=== PATIENT | male | born 1940 | race Caucasian/White ===

== ENCOUNTER 2018-02-20 06:37 | Outpatient (CLI) | payer OTHER ==
[~2018-02-20] VITALS: Ht 182.9 cm; Wt 91.2 kg
--- NOTE | ~2018-02-20 | D ---
[facility] [place] [address] DISCHARGE SUMMARY Name: NELDA STAUFFER [id number] Admission: 02/20/18 Attend Phys: Abdon Turk MD Discharge: 02/21/18 Date of : 44 Report #: [id number] THIS REPORT FOR: //name// CC: Abdon Mike DATE OF SERVICE: 02/21/2018 FINAL DIAGNOSES: 1. Coronary artery disease, status post percutaneous coronary angioplasty. 2. Diabetes mellitus. 3. Hypercholesterolemia. 4. Bradycardia. 5. Gastroesophageal reflux disease. HOSPITAL COURSE: Please see the original H and P for full details. He has significant CAD risk factors and presents with dyspnea on exertion. While undergoing a stress test, he had significant ST segment changes with exercise. He reported no chest pains, but some fatigue. The images revealed inferior wall ischemia. He presented for elective cardiac catheterization. Please see the catheterization report for full details. There was a severe occlusion involving the RCA, undergoing placement of drug-eluting stent. He has remained hemodynamically stable and will be discharged home. He is given strict instructions on the importance of dual antiplatelet therapy. FINAL DISPOSITION: Brilinta 90 mg twice a day, aspirin 81 mg daily, Crestor 40 mg daily, Zetia 10 mg daily, glipizide, Actos and metformin. He is given instructions for followup in the office. <ELECTRONICALLY SIGNED> By: Abdon Turk MD 02/23/18 0959 [id number] Abdon Turk MD /matti
--- NOTE | ~2018-02-20 | CATHLAB ---
[facility] [place] [address] INVASIVE PROCEDURE REPORT Name: NELDA STAUFFER Room #: 208-P [facility]#: [id number] Admission: 02/20/18 Attend Phys: Abdon Turk MD Discharge: Date of : 44 Date of Service: 02/20/18 1723 Report #: [id number] THIS REPORT FOR: //name// APPROVED REPORT Study performed: 02/20/2018 09:20:17 Patient Details Patient Status: Out-Patient Room #: The patient is a 77 year-old male Event Personnel Abdon Turk Pest Control Service Representative, Elias Agrawal RN, Nelda Hernandez, Negra Zuniga Scrgeno Procedures Performed Left Heart Cath w/or w/o Coronaries [id number] [facility] Place w/wo Plasty Single RCA [id number] Indication Abnormal ECG, Dyspnea, Positive stress test Risk Factors Hypercholesterolemia, Hypertension, Diabetes Procedure Narrative The Right Groin^ was infiltrated with 1% Lidocaine subcutaneous anesthesia. A PINNACLE 4FR Sheath #[id number] sheath was inserted into the RFA^. Coronary angiography was performed using coronary diagnostic catheters. The right coronary system was accessed and visualized with a JR4 catheter. The left coronary system was accessed and visualized with a JL4 catheter. The left ventricle was accessed and visualized with a PIGTAIL catheter. Left ventricular/Aortic Valve gradient assessed via catheter pullback. Left ventriculogram was performed in 30 degree projection. Closure device was deployed with a 6 Fr MYNXGRIP 6/7F #[id number]. The patient tolerated the procedure well and there were no complications associated with the procedure. There was no hematoma. Intraoperative Conscious Sedation Sedation start time: 10.09 Case end Time: 12.22 Fentanyl mcg Versed mg Fluoro Time: 29.38 minutes [facility] [address] [address] INVASIVE PROCEDURE REPORT Name: NELDA STAUFFER Room #: 208-P [facility]#: [id number] Admission: 02/20/18 Attend Phys: Abdon Turk MD Discharge: Date of : 44 Date of Service: 02/20/18 1723 Report #: [id number] Dose: DAP 13979 cGycm2 3187 mGy Contrast Type and Amount: Omnipaque 320 ml Coronary Angiography The patient's coronary anatomy is right dominant. Diagnostic Cath Left Main This is a patent vessel, with no flow-limiting lesions. LAD The proximal mid segments are mildly calcified with mild to moderate diffuse disease, 30-40%. Diagonal 1 Patent vessel, with no flow-limiting lesions. Circumflex There is a moderate stenosis in the proximal segment, 50%. OM1 Moderate size caliber vessel with mild disease proximally, 30%. OM2 This is a small-caliber vessel with a borderline stenosis at the ostium, 60%. Recommend medical therapy. Right Coronary This is a dominant vessel with a severe occlusion in the mid segment, at the bifurcation of a PDA. This stenosis is at least 95%, with calcifications. There is also a discrete severe, stenosis in the distal segment, 80%. R PDA Has moderate disease at the ostium. RPLV Patent vessel, with no flow-limiting lesions. Left Ventriculography The left ventricle is normal in size with normal contractility. The left ventricular ejection fraction is estimated to be >55%. Hemodynamics The aortic pressure is 149/68 mmHg with a mean of 98 mmHg. The left ventricular pressure is 160/13 mmHg with a mean of mmHg. The left ventricular end diastolic pressure is 25 mmHg. There was no gradient across the aortic valve upon pullback. Pullback from the left ventricle to the aorta revealed no gradient across the aortic valve. PCI Technique Lesion Anticoagulation was achieved with Angiomax. Patient was preloaded with Brillinta. Percutaneous coronary intervention was performed on the mid right coronary artery. The lesion stenosis prior to intervention was 98% with LIBAN 3 flow. A ReffpediaTA 6FR JR 4 #[id number] Guide Catheter was used to engage the ostium. A [employer] Soft Wire .014 x 180cm #[id number] Interventional Guidewire was used to cross the [facility] [address] [place] [address] INVASIVE PROCEDURE REPORT Name: NELDA STAUFFER Room #: 208-P [facility].#: [id number] Admission: 02/20/18 Attend Phys: Abdon Turk MD Discharge: Date of : 44 Date of Service: 02/20/18 1723 Report #: [id number] lesion. BALLOON DILATION A Balloon catheter Euphora RX 1.5 x 12 #[id number] was inserted and inflated up to 14.00atm for 26seconds. Additional Inflation: 18.00atm for 14seconds. 2.0X12 24/57 2.0X12NC/20-41- 2.8I43WL86/31 13/13 STENT DEPLOYMENT A drug-eluting stent RESOLUTE NATI RX 2.75 X15 #[id number] was inserted and inflated up to 12.00atm for 17seconds. POST STENT DEPLOYMENT BALLOON DILATION A Balloon catheter TREK NC RX 3.0 X 12 #[id number] was inserted and inflated up to 15.00atm for 19seconds. Final angiography reveals 5 % stenosis with LIBAN 3 flow. PCI Technique Lesion 2 Percutaneous Coronary Intervention was performed on the distal RCA segment. The lesion stenosis prior to intervention was 80% with LIBAN 3 flow. A VISTA 6FR JR 4 #[id number] Guide Catheter was used to engage the ostium. A Luge Wire .014 x 182CM #[id number] Interventional Guidewire was used to cross the lesion. Stent Deployment A drug-eluting stent RESOLUTE NATI 2.5 X 8 #[id number] was inserted and inflated up to 10.00atm for 29seconds. Additional Inflation: 12.00atm for 21seconds. Post Stent Deployment Balloon Dilation A Balloon catheter Euphora NC RX 2.25 x 6 #[id number] was inserted and inflated up to 18.00atm for 17seconds. Additional Inflation: 15.00atm for 13seconds. Final angiography reveals 5 % stenosis with LIBAN 3 flow. Conclusion 1. Successful insertion of drug-eluting stents into the mid and distal segments of the RCA. 2. Borderline stenosis in a small second OM vessel, recommend medical therapy. 3. Mild to moderate disease in the LAD and left circumflex arteries. 4. Normal LV systolic function. [facility] [email or web address] [place] [address] INVASIVE PROCEDURE REPORT Name: NELDA STAUFFER Room #: 208-P [facility]#: [id number] Admission: 02/20/18 Attend Phys: Abdon Turk MD Discharge: Date of : 44 Date of Service: 02/20/181722 Report #: [id number] 5. Recommend dual antiplatelet therapy and aggressive risk factor management. <ELECTRONICALLY SIGNED> By: Abdon Turk MD 02/20/181722 22 22 Abdon Turk MD /INF
--- NOTE | ~2018-02-20 | EKG ---
[address] [address] ELECTROCARDIOGRAM REPORT Name: XIOMYNELDA Room #: 208-[facility]#: [id number] Admission: 02/20/18 Attend Phys: Abdon Turk MD Discharge: Date of : 44 Report #: [id number] THIS REPORT FOR: //name// [facility] Test Date: 2018-02-20 Test Time: 14:15:59 Pat Name: NELDA STAUFFER Department: Room: 208 P Gender: M Counseling Case Manager: Patrick MOORE : 1940 Requested By: Abdon Turk Order Number: [id number] MD: Max Barajas Measurements Intervals [place] Rate: 63 P: 51 [place]: 260 QRS: 32 QRSD: 112 T: 29 QT: 433 QTc: 444 Interpretive Statements Sinus rhythm Prolonged [place] interval Borderline intraventricular conduction delay Borderline low voltage, extremity leads Compared to ECG 03/23/1999 10:51:07 First degree AV block now present ST (T wave) deviation no longer present Electronically Signed On 02-20-2018 14:50:31 INTELLIGENCE SPECIALIST by Max Barajas [email or web address] <ELECTRONICALLY SIGNED> By: Max Barajas MD 02/20/18 1450 1415 1415 Max Barajas MD /EPI
--- NOTE | ~2018-02-20 | EKG ---
[address] [address] ELECTROCARDIOGRAM REPORT Name: XIOMYNELDA Room #: 208-P [facility]#: [id number] Admission: 02/20/18 Attend Phys: Abdon Turk MD Discharge: Date of : 44 Report #: [id number] THIS REPORT FOR: //name// [facility] Test Date: 2018-02-21 Test Time: 06:22:58 Pat Name: NELDA STAUFFER Department: Room: 208 P Gender: M Protective Signal Installer Helper: LUIS : 1940 Requested By: Abdon Turk Order Number: [id number] MD: Max Barajas Measurements Intervals [place] Rate: 68 P: 81 [place]: 233 QRS: 29 QRSD: 103 T: 57 QT: 440 QTc: 469 Interpretive Statements Sinus rhythm Prolonged [place] interval Low voltage, extremity leads Compared to ECG 02/20/2018 14:15:59 Electronically Signed On 02-21-2018 8:04:56 REACTOR FUELING SUPERVISOR by Max Barajas [email or web address] <ELECTRONICALLY SIGNED> By: Max Barajas MD 02/21/18 08 06 1 Max Barajas MD /LAYNE
[2018-02-20 07:10] VITALS: BP 148/64
[2018-02-20] MEDS ORDERED: VITAMINC500 PO (07:13)
[2018-02-20] MEDS ORDERED: ZETIA10 MG PO (07:14)
[2018-02-20] MEDS ORDERED: GLUCOTROL5 MG PO (07:14)
[2018-02-20] MEDS ORDERED: CO Q-10100 MG PO (07:14)
[2018-02-20] MEDS ORDERED: PIOGLITAZONE15 MG PO (07:16)
[2018-02-20] MEDS ORDERED: VICTOZA0.6 MG/0.1 IM (07:16)
[2018-02-20] MEDS ORDERED: OMEGA-31000 M1 PO (07:17)
[2018-02-20] MEDS ORDERED: OMEPRAZOLE20 M2 PO (07:17)
[2018-02-20] MEDS ORDERED: CENTRUM SILVER1 EAC4 PO (07:17)
[2018-02-20] MEDS ORDERED: OSTEO BI-FLEX1 EAC1 PO (07:17)
[2018-02-20] MEDS ORDERED: CURCUMIN1 GM PO (07:18)
[2018-02-20] MEDS ORDERED: CRESTOR40 MG PO (07:19)
[2018-02-20] MEDS ORDERED: GLUCOPHAGE XR500 MG PO (07:19)
[2018-02-20] MEDS ORDERED: VITAMIN D-32000 UNIT PO (07:20)
[2018-02-20 07:31] LABS: HEMATOCRIT 34.6 % (42.0-52.0); HEMOGLOBIN 11.4 gm/dL (14.0-18.0); MCH 30.7 pg (26.0-34.0); MCV 93.1 fL (80.0-100.0); RBC 3.72 mil/uL (4.50-6.00); RDW 13.8 % (10.5-14.5); WBC 5.1 thou/uL (4.0-11.0)
[2018-02-20 07:39] LABS: CALCIUM 9.8 mg/dL (8.5-10.1); CREATININE 0.9 mg/dL (0.7-1.3); POTASSIUM 4.3 mmol/L (3.5-5.1)
[2018-02-20 15:10] VITALS: BP 139/71
[2018-02-20 19:51] VITALS: BP 125/67
[2018-02-21 00:19] VITALS: BP 125/62
[2018-02-21 04:20] LABS: HEMOGLOBIN 11.4 gm/dL (14.0-18.0); MCH 30.3 pg (26.0-34.0); MCHC 32.7 g/dL (28.0-37.0); MCV 92.8 fL (80.0-100.0); RBC 3.77 mil/uL (4.50-6.00); RDW 13.4 % (10.5-14.5)
[2018-02-21 05:01] LABS: ALBUMIN 3.6 g/dL (3.4-5.0); ANION GAP 10 mmol/L (7-16); BUN 16 mg/dL (7-18); CALCIUM 9.7 mg/dL (8.5-10.1); CHLORIDE 103 mmol/L (98-107); CO2 26 mmol/L (21-32); CREATININE 0.9 mg/dL (0.7-1.3); GLUCOSE 102 mg/dL (74-106); POTASSIUM 4.2 mmol/L (3.5-5.1); SGOT 37 U/L (15-37); SGPT 33 U/L (30-65); SODIUM 139 mmol/L (136-145); TOTAL BILIRUBIN 0.6 mg/dL (<0.1-1.0); TOTAL PROTEIN 7.8 g/dL (6.4-8.2); TROPONIN-I <0.06 ng/mL (<0.06)
[2018-02-21 05:37] VITALS: BP 126/58
[2018-02-21 07:40] VITALS: BP 128/53
[2018-02-21] MEDS ORDERED: BRILINTA90 MG PO (08:01)
[2018-02-21] MEDS ORDERED: ASPIR 8181 MG PO (08:02)
[2018-02-21 09:28] VITALS: BP 126/58
== END 2018-02-21 10:28 | disposition home or self-care (01) ==
LOC: CATH 06:37 → 2N 12:46 → CATH 12:46 → 2N 13:17 → CATH 02-21 10:28
PROVIDERS: Internal Medicine Cardiovascular Disease
DX: I25.10 Atherosclerotic heart disease of native coronary artery without angina pectoris (principal); I10 Essential (primary) hypertension; E78.00 Pure hypercholesterolemia, unspecified; E11.9 Type 2 diabetes mellitus without complications; K21.9 Gastro-esophageal reflux disease without esophagitis; Z79.4 Long term (current) use of insulin; Z82.49 Family history of ischemic heart disease and other diseases of the circulatory system; Z79.82 Long term (current) use of aspirin; Z79.899 Other long term (current) drug therapy; Z98.890 Other specified postprocedural states
CPT/HCPCS: 10081

== ENCOUNTER → 2020-09-28 | Outpatient (CLI) | payer OTHER ==
[~2020-09-28] MED LIST: ASPIR 8181 MG PO; BRILINTA90 MG PO; CENTRUM SILVER1 EAC4 PO; CO Q-10100 MG PO; CRESTOR40 MG PO; CURCUMIN1 GM PO; GLUCOPHAGE XR500 MG PO; GLUCOTROL5 MG PO; OMEGA-31000 M1 PO; OMEPRAZOLE20 M2 PO; OSTEO BI-FLEX1 EAC1 PO; PIOGLITAZONE15 MG PO; VICTOZA0.6 MG/0.1 IM; VITAMIN D-32000 UNIT PO; VITAMINC500 PO; ZETIA10 MG PO
== END ==
LOC: SJCVC 15:00
PROVIDERS: ATTEND Internal Medicine Cardiovascular Disease
DX: R94.31 Abnormal electrocardiogram [ECG] [EKG] (principal); I44.0 Atrioventricular block, first degree; I45.10 Unspecified right bundle-branch block; I25.10 Atherosclerotic heart disease of native coronary artery without angina pectoris; I10 Essential (primary) hypertension; E78.00 Pure hypercholesterolemia, unspecified; R00.1 Bradycardia, unspecified; K21.9 Gastro-esophageal reflux disease without esophagitis; E11.9 Type 2 diabetes mellitus without complications; Z95.5 Presence of coronary angioplasty implant and graft; Z79.82 Long term (current) use of aspirin; Z79.84 Long term (current) use of oral hypoglycemic drugs; Z79.899 Other long term (current) drug therapy

== ENCOUNTER → 2021-03-31 | Outpatient (CLI) | payer OTHER | LOC: SJCVCIMAG 09:43 | PROVIDERS: ATTEND Internal Medicine Cardiovascular Disease | DX: I35.8 Other nonrheumatic aortic valve disorders (principal); R94.31 Abnormal electrocardiogram [ECG] [EKG]; I44.0 Atrioventricular block, first degree; I45.10 Unspecified right bundle-branch block; I25.10 Atherosclerotic heart disease of native coronary artery without angina pectoris; I10 Essential (primary) hypertension; E78.00 Pure hypercholesterolemia, unspecified; R00.1 Bradycardia, unspecified; K21.9 Gastro-esophageal reflux disease without esophagitis; E78.5 Hyperlipidemia, unspecified; E11.9 Type 2 diabetes mellitus without complications; Z79.82 Long term (current) use of aspirin; Z79.84 Long term (current) use of oral hypoglycemic drugs; Z79.899 Other long term (current) drug therapy ==